=== PATIENT | female | born 1980 | race Asian ===

== ENCOUNTER 2017-02-15 11:50 | Emergency (ER) | payer OTHER ==
[~2017-02-15] VITALS: Ht 154.9 cm; Wt 161.0 kg
[2017-02-15 12:48] LABS: PLATELET COUNT 254 K/uL (152-353)
[2017-02-15 12:52] LABS: POTASSIUM 3.6 mmol/L (3.6-5.2); SODIUM 137 mmol/L (136-145)
[2017-02-15 16:55] VITALS: BP 144/94; TEMP 97.8
== END 2017-02-15 16:55 | disposition home or self-care (01) ==
LOC: ED 11:50
DX: K57.32 Diverticulitis of large intestine without perforation or abscess without bleeding (principal)
CPT/HCPCS: 36415; 80053; 82150; 83690; 85027; 99284; Q9963